=== PATIENT | male | born 1970 | race Caucasian/White ===

== ENCOUNTER 2020-11-10 07:35 | Emergency (ER) | payer MEDICAID, SELFPAY ==
[2020-11-10 07:36] VITALS: BP 126/94; PULSE 107; RESP 16; TEMP 36.7; O2SAT 99; BMI 25.8
--- NOTE | 2020-11-10 08:05 | RAD_ITS ---
STUDY: X-RAY - RIGHT ELBOW REASON FOR EXAM: Male, 50 years old. Pain, Swelling TECHNIQUE: 3 view(s) of the elbow. COMPARISON: None. FINDINGS: There is an enthesophyte seen in association with the triceps insertion upon the olecranon. This enthesophyte appears distracted although well corticated. There is soft tissue swelling seen posteriorly. This swelling may relate to triceps tendon injury, alternatively and/or concurrently olecranon bursitis is also considered. Otherwise, normal visualized humerus, radius and ulna. Normal radiocapitellar and ulnotrochlear articulations. The soft tissue structures are unremarkable. RAD/Elbow min 3 Views IMPRESSION: There is an enthesophyte seen in association with the triceps insertion upon the olecranon. This enthesophyte appears distracted although well corticated. There is soft tissue swelling seen posteriorly. This swelling may relate to triceps tendon injury, alternatively and/or concurrently olecranon bursitis is also considered. Electronically Signed: Nargis Sanabria MD at 10:18 EDT , Service support ,
--- NOTE | 2020-11-10 08:06 | EKG12_ITS ---
Test Reason : LOWER EXTREMITY PAIN Blood Pressure : / mmHG Vent. Rate : 088 BPM Atrial Rate : 088 BPM P-R Int : 132 ms QRS Dur : 080 ms QT Int : 356 ms P-R-T Axes : 062 069 060 degrees QTc Int : 430 ms Normal sinus rhythm Normal ECG Confirmed by ORIANA CASTANEDA, MARCOS ([id number]), art editor DONNA DEL ROSARIO ([id number]) on 11/12/2020 12:28:29 PM Referred By: MARCOS Confirmed By:MARCOS GASTELUM MD
--- NOTE | 2020-11-10 08:12 | NURSING ---
NO OLD EKGS
[2020-11-10 09:06] VITALS: TEMP 37.4
[2020-11-10 09:15] LABS: Absolute Lymphocyte Count 2.57 X10^3/uL (0.83-4.51); Absolute Neutrophil Count 11.1 X10^3/uL (2.0-7.7); Basophil# 0.08 X10^3/uL; Basophil% 0.5 % (0-1); Eosinophil# 0.92 X10^3/uL; Eosinophils% 5.9 % (0-5); Hematocrit 39.7 % (40-54); Hemoglobin 13.4 g/dL (13.0-16.5); Lymphocyte # 2.57 X10^3/ul (0.83-4.51); Lymphocyte % 16.5 % (19-41); Mean Corp Hgb Conc 33.8 g/dL (32-36); Mean Corpuscular Hgb 30.9 pg (27.0-32.0); Mean Corpuscular Volume 91.5 fL (80-94); Mean Platelet Vol. 9.5 fl (6.2-12.0); Monocyte# 0.87 X10^3/uL; Monocyte% 5.6 % (0-10); NRBC Flagged by Analyzer 0 % (0-5); Neutrophil # 11.05 X10^3/uL (2.7-7.7); Neutrophil % 71.1 % (47-70); Platelet Count 338 K/mm3 (150-450); RBC Distribution Width CV 13.2 % (11.6-14.6); RBC Distribution Width SD 44.4 fl (35.1-43.9); Red Blood Count 4.34 M/mm3 (4.6-6.2); White Blood Count 15.6 K/mm3 (4.4-11.0)
[2020-11-10 09:31] LABS: AST(SGOT) 15 U/L (15-37); Alanine Aminotransfer ALT/SGPT 22 U/L (16-61); Albumin, Serum 3.8 g/dL (3.2-5.0); Alkaline Phosphatase 74 U/L (45-117); Anion Gap 6 (5-15); BUN 9 mg/dL (7-18); BUN/Creat Ratio 12.4 RATIO (10-20); Calcium,Total 9.8 mg/dL (8.5-10.1); Chloride 105 mmol/L (98-107); Creatinine, Serum 0.72 mg/dL (0.70-1.30); EST Glomerular Filtration Rate 123 mL/min (>60); Est Glom Filt Rate - Afr Amer 149 mL/min (>60); Estimated Creatinine Clearance 129.55 ml/min; Glucose 97 mg/dL (74-106); Potassium 4.2 mmol/L (3.5-5.1); Protein, Total 7.8 g/dL (6.4-8.2); Prothrombin Time (Protime)PT. 12.3 SECONDS (11.7-14.9); Sodium Level 139 mmol/L (136-145)
[2020-11-10 09:32] LABS: Partial Thromboplast Time 34.6 Seconds (24.1-36.2)
[2020-11-10 09:32] LABS: Bacteria 0 SEEN /hpf (None Seen); Mucous, Urine 0 SEEN /hpf (<or=2+); Red Blood Cells-Urine 0 SEEN /hpf (0-5); Squamous Epithelial Cells - UA 0 SEEN /hpf (0-5); White Blood Cells 0 SEEN /hpf (0-5)
[2020-11-10 09:36] LABS: Color, Urine Yellow (Yellow); Glucose, Dipstick Normal (Normal); Ketone-Dipstick Negative (Negative); Leukocyte Esterase-Dipstick Negative /ul (Negative); Nitrite-Dipstick Negative (Negative); Occult Blood-Urine Negative /ul (Negative); Protein-Dipstick Negative (Negative); Urine Bilirubin Dipstick Negative (Negative); Urine Clarity Clear (Clear); Urine Urobilinogen Normal (Normal)
[2020-11-10 09:41] LABS: Lactic Acid 0.6 mmol/L (0.4-1.9)
[2020-11-10 09:48] LABS: Amorphous Sediment 1+
--- NOTE | 2020-11-10 10:37 | EX.ED.UPPERE ---
HPI History of Present Illness HPI Narrative: Patient with past medical history of prior injury to his right elbow. He states he might of had an avulsion fracture there years ago, presents with pain and swelling, and redness of his right elbow. He has right hand dominant. He states that approximately a week ago, he was working, and hit his elbow once again. However, over the last 24 hours, he has had increased swelling and pain of his right elbow. 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 It has increased in size according to his fianc?e over the last 24 hours. They state that yesterday it was the size of a dime, but now has grown to the size of a softball, but then has reduced in size slightly. He has pain with movement of his right elbow. He denies any nausea or vomiting. No other symptoms. Chief Complaint: Upper Extremity Injury [facility] Medical History (Updated 11/10/20 @ 11:42 by Akil Humphrey MD) Back pain Chronic pain Home Medications hydrocodone-acetaminophen 1 - 2 tab PO Q4H PRN PRN #12 tablet 11/09/14 [Rx Last Taken Unknown] diclofenac sodium 50 mg PO BID #20 tablet 03/17/15 [Rx Last Taken Unknown] orphenadrine citrate 100 mg PO BID #20 tablet 03/17/15 [Rx Last Taken Unknown] doxycycline monohydrate 100 mg PO BID #20 cap 11/10/20 [Rx Last Taken Unknown] Allergy/AdvReac Type Severity Reaction Status Date / Time No Known Allergies Allergy Verified 11/10/20 07:38 Social History Smoking Status: Current every day smoker tobacco type: cigarettes ROS ROS ED ROS Narrative Constitutional: Mild subjective fever, no chills. HEENT: No sore throat. No neck pain. No loss of vision. No rhinorrhea. Cardiovascular: No chest pain. No palpitations. No pedal edema. Respiratory: No cough, no shortness of breath. Abdominal: No abdominal pain. No nausea. No vomiting. Genitourinary: No dysuria. No hematuria. Musculoskeletal: No myalgias. Right elbow pain, swelling, and redness Neurologic: No headaches. No dizziness. No lightheadedness. Skin: No rash. Positive redness to right elbow. Psychiatric: No depression. No anxiety. EXAM Physical Exam Narrative Exam Narrative: Afebrile. Temperature slightly elevated at 99.4 degrees. Vital signs noted. Nontoxic-appearing. HEENT: Normocephalic. Atraumatic. PERRL, EOMI. Neck soft and supple. No point tenderness or step off. Cardiovascular: Regular rate and rhythm. No murmurs, rubs, or gallops appreciated. Respiratory: No tachypnea. Lungs clear to auscultation bilaterally. Gastrointestinal: Abdomen soft, nontender, with normoactive bowel sounds. No rebound or guarding. Neurological: Awake. Alert. Nonfocal, nonlateralizing. Skin: No rash. Normal color. No pallor. Musculoskeletal: No pedal edema. Positive erythema right elbow, noted swelling consistent with olecranon bursitis. Range of motion right elbow limited secondary to pain. Palpable radial pulse. Const Vital Signs: 11/10/20 07:36 11/10/20 09:06 Temperature 98.0 F 99.4 F H Temperature Source Temporal Temporal Pulse Rate 107 H Respiratory Rate 16 Blood Pressure 126/94 H Blood Pressure Mean 104 Pulse Ox 99 Oxygen Delivery Method Room Air Room Air MDM MDM MDM Narrative Medical decision making narrative: Sepsis work-up was pursued. He has history of chronic pain and has taken a Percocet this morning. He was later administered morphine for analgesia. WBC count elevated 15.6. INR is normal. Lactic acid is also normal. Blood cultures are currently pending. He was started on vancomycin and Zosyn. X-rays were obtained which show a well-corticated ensethophyte which I think is from his prior injury which he states he never followed up with orthopedics. Currently, given his pain and swelling I do feel he has a septic bursitis. In discussion with the patient, he feels like he would like to be treated as an outpatient and would like to go home. He has pain medicine at home also. Although he has a white count, he has a normal lactic acid. I discussed patient with Dr. Mao with orthopedics. He would like him placed on doxycycline 100 mg twice daily. Prescription will be written. I feel he can be discharged safely home with follow-up after IV antibiotics. I stressed the importance of follow-up with orthopedics. Disposition is discharged home in stable condition. Lab Data Attestation: I reviewed the patient's lab results. Labs: Laboratory Results - last 24 hr 11/10/20 11/10/20 11/10/20 09:05 09:05 09:05 WBC 15.6 H RBC 4.34 L Hgb 13.4 Hct 39.7 L MCV 91.5 MCH 30.9 MCHC 33.8 RDW Std Deviation 44.4 H RDW Coeff of Stephani 13.2 Plt Count 338 MPV 9.5 Immature Gran % (Auto) 0.400 Neut % (Auto) 71.1 H Lymph % (Auto) 16.5 L [place] % (Auto) 5.6 Eos % (Auto) 5.9 H Baso % (Auto) 0.5 Absolute Neuts (auto) 11.1 H Absolute Lymphs (auto) 2.57 Nucleated RBC % 0 PT 12.3 INR 1.0 APTT 34.6 Sodium 139 Potassium 4.2 Chloride 105 Carbon Dioxide 28.0 Anion Gap 6 BUN 9 Creatinine 0.72 Estim Creat Clear Calc 129.55 Est GFR (MDRD) Af Amer 149 Est GFR (MDRD) Non-Af 123 BUN/Creatinine Ratio 12.4 Glucose 97 Lactic Acid Calcium 9.8 Total Bilirubin 0.40 AST 15 ALT 22 Alkaline Phosphatase 74 Total Protein 7.8 Albumin 3.8 Globulin 4.0 Albumin/Globulin Ratio 1.0 Urine Color Urine Clarity Urine pH Ur Specific [place] Urine Protein Urine Glucose (UA) Urine Ketones Urine Occult Blood Urine Nitrite Urine Bilirubin Urine Urobilinogen Ur Leukocyte Esterase Urine RBC Urine WBC Ur Squamous Epith Cells Amorphous Sediment Urine Bacteria Urine Mucus 11/10/20 11/10/20 09:05 Unknown WBC RBC Hgb Hct MCV MCH MCHC RDW Std Deviation RDW Coeff of Stephani Plt Count MPV Immature Gran % (Auto) Neut % (Auto) Lymph % (Auto) [place] % (Auto) Eos % (Auto) Baso % (Auto) Absolute Neuts (auto) Absolute Lymphs (auto) Nucleated RBC % PT INR APTT Sodium Potassium Chloride Carbon Dioxide Anion Gap BUN Creatinine Estim Creat Clear Calc Est GFR (MDRD) Af Amer Est GFR (MDRD) Non-Af BUN/Creatinine Ratio Glucose Lactic Acid 0.6 Calcium Total Bilirubin AST ALT Alkaline Phosphatase Total Protein Albumin Globulin Albumin/Globulin Ratio Urine Color Yellow Urine Clarity Clear Urine pH 7.0 Ur Specific [place] 1.010 Urine Protein Negative Urine Glucose (UA) Normal Urine Ketones Negative Urine Occult Blood Negative Urine Nitrite Negative Urine Bilirubin Negative Urine Urobilinogen Normal Ur Leukocyte Esterase Negative Urine RBC 0 SEEN Urine WBC 0 SEEN Ur Squamous Epith Cells 0 SEEN Amorphous Sediment 1+ Urine Bacteria 0 SEEN Urine Mucus 0 SEEN Radiography Diagnostic Testing: Radiology Impression Elbow X-Ray 11/10/20 08:05 IMPRESSION: There is an enthesophyte seen in association with the triceps insertion upon the olecranon. This enthesophyte appears distracted although well corticated. There is soft tissue swelling seen posteriorly. This swelling may relate to triceps tendon injury, alternatively and/or concurrently olecranon bursitis is also considered. Electronically Signed: Nargis Sanabria MD at 10:18 EDT , Service support , Discharge Plan Triage Chief Complaint: Upper Extremity Injury ED Provider: Akil Humphrey Dx/Rx/DC Orders Clinical Impression: Septic olecranon bursitis of right elbow Instructions: What Is Bursitis?, ED Bursitis Prescriptions: New doxycycline monohydrate 100 mg capsule 100 mg PO BID Qty: 20 RF: 0 No Action hydrocodone-acetaminophen 1 TABLET tablet 1 - 2 tab PO Q4H PRN PRN (Reason: Pain) Qty: 12 RF: 0 orphenadrine citrate 100 MG tablet 100 mg PO BID Qty: 20 RF: 0 diclofenac sodium 50 MG tablet 50 mg PO BID Qty: 20 RF: 0 Primary Care Provider: Rito Plunkett Referrals: Rito Plunkett DO [Primary Care Provider] - Peterson Mao MD [STAFF PHYSICIAN] - 11/15/20 Disposition Disposition: Home, Self Care
[2020-11-10] MEDS: Morphine 4 MG/ML Syringe IV (11:20)
[2020-11-10 11:32] VITALS: BP 142/96; PULSE 88; RESP 17; O2SAT 98
[2020-11-10 11:41] VITALS: TEMP 36.6
[2020-11-10 13:24] VITALS: BP 131/86; PULSE 94; RESP 17; TEMP 36.4; O2SAT 99
[2020-11-10 13:50] VITALS: BP 131/86; PULSE 86; RESP 17; O2SAT 99
== END 2020-11-10 13:51 | disposition home or self-care (01) ==
PROVIDERS: Emergency Provider Emergency Medicine; PCP Family Medicine
DX: M70.21 Olecranon bursitis, right elbow (principal); Y93.9 Activity, unspecified; M54.9 Dorsalgia, unspecified; G89.29 Other chronic pain; F17.210 Nicotine dependence, cigarettes, uncomplicated; Z79.899 Other long term (current) drug therapy
CPT/HCPCS: 36415; 73080; 80053; 81001; 83605; 85025; 85610; 85730; 87040; 87086; 93005; 96365; 96366; 96367; 96374; 99284; J7050; A4216